=== PATIENT | male | born 1970 | race African-American/Black ===

== ENCOUNTER 2020-08-06 12:09 | Emergency (ER) | payer BC, SELFPAY ==
[2020-08-06 12:10] VITALS: BP 136/92; PULSE 82; RESP 16; TEMP 36.2; O2SAT 100; BMI 30.7
--- NOTE | 2020-08-06 12:22 | VDLE_ITS ---
Reason For Study: pain RIGHT GSV is normal. CFV is compressible, spontaneous, phasic, competent and demonstrates normal augmentation. FV is compressible, spontaneous, phasic, competent and demonstrates normal augmentation. POP V is compressible, spontaneous, phasic, competent and demonstrates normal augmentation. T/P Trunk is compressible. PTV is compressible. RT PerV is compressible. Gastroc V are dilated and noncompressible. No extension into the POP V. Procedure This is a venous duplex using B-mode, color flow and spectral Doppler. Exam performed portable in ED. The exam was abbreviated due to the COVID 19 protocol. The exam was diagnostic. A preliminary report was called and/or faxed to Dr. Carrizales. Interpretation Summary Acute deep venous thrombosis right gastrocnemius vein Otherwise patent and compressible deep veins of the right lower extremity Patent and compressible right great saphenous vein Abbreviated COVID-19 protocol Ordering Physician: Mio Carrizales Performed By: Param Shane RVT
--- NOTE | 2020-08-06 12:23 | ED.DCSUM_ITS ---
History of Present Illness Chief Complaint: Lower Extremity Injury Informant: Patient Narrative: 49-year-old male with no reported medical problems presenting with right calf pain. He states this has been ongoing for a few days and is getting worse. He notices it when he is walking and it feels like it is in the center of his right calf. He thought maybe he tore something however he does not remember any event. 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 No history of DVT/PE. He is not having any chest pain, palpitations, shortness of breath. Past Medical History - Allergies and Home Meds Allergies/Adverse Reactions: Allergies Penicillins Allergy (Verified 08/06/20 12:09) Rash Primary Care Physician: Marcus Torres DO [Primary Care Provider] - Prior records reviewed: Yes Past Medical History: - - Denies medical problems Surgical History: noncontributory Lives: Spouse/ Significant Other Smoking Status: Unknown if ever smoked Alcohol: None Drugs: None Review of Systems General: Denies: Chills, Fever, Sweats Eyes: Denies: Visual changes - bilaterally, Diplopia ENT: Denies: Rhinorrhea, Sore throat Cardiovascular: Denies: Chest pain, Palpitations Respiratory: Denies: Dyspnea, Cough, Dyspnea on exertion Gastrointestinal: Denies: Abdominal pain, Nausea, Vomiting, Diarrhea, Melena, Hematochezia Musculoskeletal: Reports: Swelling - Right calf swelling, - - Right calf pain Skin: Denies: Rash, Abscess Neurological: Denies: Parasthesia, Numbness Physical Exam Vital Signs/Narrative: Vital Signs Temp Pulse Resp BP Pulse Ox 08/06/20 12:10 97.2 F L 82 16 136/92 H 100 Inital Vital Signs reviewed: Yes General: Well nourished, Well developed, No Acute Distress Head: Normocephalic, Atraumatic Eyes: Perrl, EOMI Cardiovascular: Regular rate, Regular rhythm, No murmurs Respiratory: No distress, CTA bilaterally, Chest nontender Extremities: Tenderness, Calf Tenderness - Calf tenderness. Mild swelling noted. Calf pain with dorsiflexion., - Skin: Normal color, No rash Neurological: Alert, Oriented x3 Psychological: Normal affect, Normal Mood Diagnostic/Tx/Re-eval - Medical Decision Making 49-year-old male presenting with right calf pain. 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 Ultrasound reveals gastrocnemius DVT which is very close to the popliteal region. Given this patient will be started on Eliquis. First dose in the ED. He does deny chest pain, palpitations, shortness of breath. He requests a work note for a week due to pain in his right leg. He states that he does heavy labor. Patient was given a work note. Risks and benefits and blood thinners were discussed with him at length. He will make a follow-up appointment with his primary care doctor to make sure that he has medication refills. Patient stable for disc harge at this time. Impression: 1. DVT ED Disposition - Plan for ED Patient: Disposition: Home or Assisted Living Instructions: ED DVT Prescriptions: Apixaban [Eliquis] 5 mg PO BID #74 tab Transmission Status: Received by [id number] Referrals: Marcus Torres DO [Primary Care Provider] -
[2020-08-06] MEDS: APIXABAN 5 MG TABLET 10 MG PO (14:28)
== END 2020-08-06 14:30 | disposition home or self-care (01) ==
PROVIDERS: Emergency Provider Student in an Organized Health Care Education/Training Program; PCP Family Medicine
DX: I82.461 Acute embolism and thrombosis of right calf muscular vein (principal)
CPT/HCPCS: 93971; 99281